=== PATIENT | female | born 1980 | race African-American/Black ===

== ENCOUNTER 2019-01-27 20:16 | Emergency (ER) | payer BC ==
[~2019-01-27] VITALS: Ht 160 cm; Wt 81.7 kg
[~2019-01-27 20:16] MED LIST: PROAIR HFA8.5 GM; XANAX 0.5 MG0.5 M1 PO
[2019-01-27 21:39] VITALS: BP 119/71
== END 2019-01-27 21:34 | disposition home or self-care (01) ==
LOC: ER 20:16
DX: O26.891 Other specified pregnancy related conditions, first trimester (principal); M79.661 Pain in right lower leg; O99.511 Diseases of the respiratory system complicating pregnancy, first trimester; J45.909 Unspecified asthma, uncomplicated; Z3A.12 12 weeks gestation of pregnancy